=== PATIENT | female | born 1990 ===

== ENCOUNTER 2023-11-29 04:12 | Day surgery (SDC) | payer OTHER ==
[2023-11-27 13:15] VITALS: BMI 21.1
[2023-11-29] MEDS ORDERED: BUPIVACAINE HCL/PF 0.5% (5MG/ML) 10 ML VIAL ONE (07:41)
[2023-11-29] MEDS ORDERED: PROPOFOL 20 ML ONE (07:47)
[2023-11-29] MEDS ORDERED: KETOROLAC TROMETHAMINE 30 MG/1 ML VIAL ONE (07:47)
[2023-11-29] MEDS ORDERED: LIDOCAINE HCL/PF 2% SDV 5ML VIAL ONE (07:47)
[2023-11-29] MEDS ORDERED: MIDAZOLAM HCL 2 MG/2 ML SINGLE DOSE VIAL ONE (07:47)
[2023-11-29] MEDS ORDERED: ONDANSETRON 4 MG/2 ML VIAL ONE (07:47)
[2023-11-29] MEDS ORDERED: ROCURONIUM BROMIDE 50 MG/5 ML SYRINGE ONE (07:47)
[2023-11-29] MEDS ORDERED: DEXAMETHASONE SOD PHOSPHATE 4 MG/1 ML VIAL ONE (07:47)
[2023-11-29] MEDS ORDERED: SEVOFLURANE 250 ML BTL ONE (07:49)
[2023-11-29] MEDS ORDERED: oxyCODONE HCL 5 MG TABLET PO PRN ×2 (07:54)
[2023-11-29] MEDS ORDERED: ONDANSETRON 4 MG/2 ML VIAL IVPUSH PRN (07:54)
[2023-11-29] MEDS ORDERED: LACTATED RINGERS SOLUTION 1,000 ML IV SCH (08:00)
[2023-11-29] MEDS: BUPIVACAINE HCL/PF 0.5% (5 MG/ML) 30 ML VIAL IJ ONE ×2 (08:50)
[2023-11-29] MEDS ORDERED: NEOSTIGMINE METHYLSULFATE 0.5 MG/1 ML - 10 ML MDV ONE (09:11)
[2023-11-29] MEDS ORDERED: GLYCOPYRROLATE 0.2 MG/1 ML VIAL ONE (09:11)
[2023-11-29] MEDS ORDERED: ACETAMINOPHEN INJECTION 100 ML ONE (09:39)
[2023-11-29] MEDS: ACETAMINOPHEN 1000 MG/100 ML BAG IVPB ONE (09:45)
[2023-11-29 10:51] LABS: POTASSIUM 3.5 mmol/L (3.5-5.1)
[2023-11-29 10:54] LABS: CALCIUM 8.7 mg/dL (8.5-10.1)
[2023-11-29 10:55] LABS: ALBUMIN 4.1 g/dl (3.4-5.0); BLOOD UREA NITROGEN 13.1 mg/dL (7-18)
[2023-11-29 10:58] LABS: CREATININE 0.6 mg/dL (0.55-1.3)
[2023-11-29 10:59] LABS: BILIRUBIN,TOTAL 1.4 mg/dL (0.2-1)
[2023-11-29 11:00] LABS: TOT PROT 6.6 g/dl (6.4-8.2)
[2023-11-29 11:51] VITALS: RESP 18
[2023-11-29 13:21] VITALS: BP 108/68; PULSE 70; TEMP 98
[2023-11-29 14:45] LABS: HIV INTERPRETATION NEGATIVE (NEGATIVE)
== END 2023-11-29 13:03 | disposition home or self-care (01) ==
LOC: JASU-SURG 04:12
PROVIDERS: ATTEND Obstetrics & Gynecology Obstetrics
PROC: 0UT74ZZ Resection of Bilateral Fallopian Tubes, Percutaneous Endoscopic Approach (ICD-10-PCS; principal; 2023-11-29 08:00)
DX: Z30.2 Encounter for sterilization (principal)
CPT/HCPCS: 36415; 80053; 81025; 84460; 86803; 87340; 87389; 88302-TC; 94760; J0131